=== PATIENT | male | born 1990 | race Hispanic/Latino ===

== ENCOUNTER 2024-10-25 07:58 | Emergency (ER) | payer SELFPAY ==
[2024-10-25] MEDS ORDERED: Ketorolac Tromethamine 30 MG (1 mL) VIAL ONE (08:13)
[2024-10-25] MEDS ORDERED: Ondansetron PF 4 MG/2 ML Vial ONE (08:13)
[2024-10-25 08:56] LABS: #Basophils 0.06 10x3/uL (0.0-0.2); #Eosinophils 0.01 10x3/uL (0.0-0.5); #Monocytes 0.84 10x3/uL (0.0-1.1); #Neutrophils 15.44 10x3/uL (1.5-8.4); %Basophils 0.3 % (0.0-2.0); %Eosinophils 0.1 % (0.0-6.0); %Monocytes 4.8 % (0.0-10.0); %Neutrophils 88.5 % (40.0-75.0); Hematocrit 45.8 % (38.8-50.0); Hemoglobin 15.7 g/dL (13.5-17.5); Mean Corpuscular HGB CONC 34.3 g/dL (32.0-36.0); Mean Corpuscular Hemoglobin 28.4 pg (27.0-33.0); Mean Platelet Volume 10.7 fL (7.4-10.4); Platelet Count 264 10x3/uL (150-450); RBC Distribution Width 13.2 % (11.5-14.5); Red Blood Cell (RBC) Count 5.52 10x6/uL (4.32-5.72); White Blood Cell (WBC) Count 17.5 10x3/uL (3.5-10.5)
[2024-10-25 09:23] LABS: ALT (SGPT) 18 U/L (8-55); AST (SGOT) 12 U/L (5-34); Albumin 4.2 g/dL (3.5-5.0); Alkaline Phosphatase 86 U/L (40-110); Anion Gap 17 mmol/L (10-20); BUN (Urea Nitrogen) 10 mg/dL (8.9-20.6); Bilirubin, Total 0.8 mg/dL (0.2-1.2); CK (CPK) 73 U/L (30-200); Calc. Creatinine Clearance 0 mL/min (70-130); Calcium 9.5 mg/dL (7.8-10.44); Carbon Dioxide 21 mmol/L (22-29); Chloride 104 mmol/L (98-107); Estimated GFR 108; Globulin 3.4 g/dL (2.4-3.5); Glucose 120 mg/dL (70-105); Protein, Total 7.6 g/dL (6.0-8.3); Sodium 138 mmol/L (136-145)
== END 2024-10-25 09:41 | disposition home or self-care (01) ==
LOC: CSHERS 07:58
DX: J11.1 Influenza due to unidentified influenza virus with other respiratory manifestations (principal); Z55.6 Problems related to health literacy; F17.210 Nicotine dependence, cigarettes, uncomplicated
CPT/HCPCS: 80053; 82550; 85025; 87428; 96361; 96374; 96375; J1885; J2405